=== PATIENT | female | born 1950 ===

== ENCOUNTER 2017-04-17 01:25 | Emergency (ER) | payer OTHER ==
[2017-04-17] MEDS ORDERED: ASPIRIN 81 MG CHEWABLE TAB PO ONE (01:34)
[2017-04-17] MEDS ORDERED: NS 1,000 ML IV ONE (01:34)
--- NOTE | 2017-04-17 01:41 | CPEKG ---
Heart Rate: 76 RR Interval: 789 P-R Interval: 144 QRSD Interval: 78 QT Interval: 384 QTC Interval: 432 P Custer: 54 QRS Custer: 39 T Wave Custer: 42 EKG Severity - ABNORMAL ECG - EKG Impression: SINUS RHYTHM EKG Impression: CONSIDER LEFT VENTRICULAR HYPERTROPHY EKG Impression: No acute ischemic changes Electronically Signed By: Antonia Hernandez 17-Apr-2017 04:05:30
[2017-04-17 01:45] VITALS: TEMP 97.7
[2017-04-17] MEDS ORDERED: LISINOPRIL 20 MG TAB PO ONE (02:03)
[2017-04-17 02:06] LABS: % IMMATURE GRANULYOCYTES 0.3 % (0.0-1.1); ABSOLUTE IMMATURE GRANULOCYTES 0.02 10^3/uL (0.00-0.10); ADD DIFF? NO; ADD MORPH? NO; ADD SCAN? NO; ATYPICAL LYMPHOCYTE FLAG 10 (0-99); FRAGMENT RBC FLAG 0 (0-99); HEMATOCRIT 40.7 % (38.0-47.0); HEMOGLOBIN 14.1 g/dL (12.6-16.3); LEFT SHIFT FLG 0 (0-99); LIPEMIA HEMOLYSIS FLAG 90 (0-99); MEAN CELL HEMOGLOBIN 31.1 pg (27.9-34.1); MEAN CELL HEMOGLOBIN CONCENTR. 34.6 g/dL (32.4-36.7); MEAN CELL VOLUME 89.8 fL (81.5-99.8); MEAN PLATELET VOLUME 9.6 fL (8.7-11.7); PLATELET CLUMPS FLAG 0 (0-99); PLATELET COUNT 254 10^3/uL (150-400); RED BLOOD CELL COUNT 4.53 10^6/uL (4.18-5.33)
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
[2017-04-17 02:18] LABS: ANION GAP 16 mEq/L (8-16); CARBON DIOXIDE 22 mEq/l (22-31); CHLORIDE 100 mEq/L (97-110); CREATININE 0.6 mg/dL (0.6-1.0); GLOMERULAR FILTRATION RATE > 60; GLUCOSE 125 mg/dL (70-100); SODIUM 138 mEq/L (134-144)
[2017-04-17 02:19] LABS: ALANINE AMINOTRANSFERASE 33 IU/L (9-52); ALBUMIN 4.5 g/dL (3.5-5.0); ALKALINE PHOSPHATASE 104 IU/L (38-126); ASPARTATE AMINOTRANSFERASE 25 IU/L (14-46); BILIRUBIN,TOTAL 0.5 mg/dL (0.1-1.4); BILIRUBIN-CONJUGATED 0.1 mg/dL (0.0-0.5); BILIRUBIN-UNCONJUGATED 0.4 mg/dL (0.0-1.1); CALCIUM 9.9 mg/dL (8.5-10.4); TOTAL PROTEIN 7.5 g/dL (6.3-8.2)
[2017-04-17 02:29] LABS: TROPONIN I < 0.012 ng/mL (0-0.034)
[2017-04-17] MEDS ORDERED: FAMOTIDINE 20 MG/2 ML SDV IVP ONE (02:43)
[2017-04-17] MEDS ORDERED: ONDANSETRON 4 MG/2 ML VIAL IVP ONE (02:48)
[2017-04-17] MEDS ORDERED: ACETAMINOPHEN 500 MG TAB PO ONE (02:48)
[2017-04-17 03:13] VITALS: O2SAT 96
[2017-04-17 04:00] VITALS: RESP 18
[2017-04-17 04:27] VITALS: BP 152/82; PULSE 80
== END 2017-04-17 04:20 | disposition home or self-care (01) ==
LOC: CED 01:25
DX: R51 Headache (principal); R00.2 Palpitations; I10 Essential (primary) hypertension; E86.9 Volume depletion, unspecified; J45.909 Unspecified asthma, uncomplicated
CPT/HCPCS: 71010; 93005; 96361; 96374; 96375; 99285; J2405; 80048-PO; 80076-PO; 84484-PO; 85025-PO